=== PATIENT | male | born 1940 | race Caucasian/White ===

== ENCOUNTER → 2019-05-06 | Outpatient (CLI) | payer MEDICARE ==
[~2019-05-06] MED LIST: ASP81CT PO; CEPH-38 PO; LISI1TAB10 PO; OMEP-10 PO; OXYC-465 PO
--- NOTE | 2019-05-06 14:03 | Diagnostic Imaging Report ---
INDICATION: Right rib pain. TIME OF EXAMINATION: 12:23 PM. TECHNIQUE: Multiple views of the right ribs were obtained. FINDINGS: No displaced rib fracture is detected. No parenchymal contusion, effusion, or pneumothorax is detected. IMPRESSION: No abnormality is detected. Dictated by: Dictated on workstation # [id number]
== END ==
LOC: RAD FS 12:11
PROVIDERS: ATTEND Family Medicine
DX: R07.81 Pleurodynia (principal)
CPT/HCPCS: 71100

== ENCOUNTER 2020-09-17 10:52 | Outpatient (CLI) | payer MEDICARE ==
[~2020-09-17] VITALS: Ht 182.9 cm; Wt 105.5 kg
[2020-09-17] MEDS ORDERED: MAGNESIUM 1 GM/100 ML IVPB 400 ML IV ONE (11:00)
[2020-09-17 11:05] VITALS: BP 127/68
[2020-09-17] MEDS ORDERED: MAGNESIUM 1 GM/100 ML IVPB IV SCH (12:00)
== END 2020-09-17 15:24 ==
LOC: SDC 10:52
PROVIDERS: ATTEND Family Medicine
DX: E83.42 Hypomagnesemia (principal)
CPT/HCPCS: 96365; 96366

== ENCOUNTER 2022-08-30 12:36 | Outpatient (CLI) | payer MEDICARE ==
[2022-08-30 12:40] VITALS: BP 109/76
== END 2022-08-30 13:55 ==
LOC: SDC 12:36
PROVIDERS: ATTEND Family Medicine
DX: E83.42 Hypomagnesemia (principal)

== ENCOUNTER 2022-08-30 14:09 | Emergency (ER) | payer MEDICARE ==
[~2022-08-30] VITALS: Ht 182.8 cm; Wt 102.7 kg
[2022-08-30 14:09] VITALS: BP 117/81
--- NOTE | 2022-08-30 14:38 | ED General ---
General Chief Complaint: General Problems/Pain Stated Complaint: LOW MAGNESIUM Nursing Triage Note: Patient brought to ER today from infusion clinic d/t low magnesium. Infusion clinic staff stated patient's magnesium level on 08/17 was 0.5 and stated patient's PCP stated to bring patient to ER to have lab drawn. Source of Information: Patient Exam Limitations: No Limitations History of Present Illness Date Seen by Provider: Aug 30, 2022 Time Seen by Provider: 14:29 Initial Comments 81-year-old male presents to the ED for concerns of low magnesium. Patient had labs drawn on 08/17 which showed his magnesium at 0.5. Patient was at the infusion center today to get infusion of magnesium, but the had issues getting the order correct. The doctor told them to send him to the ER because the patient also seem to be " nodding off." Patient reports that he was just spacing out because he did not feel well. Patient is alert at this time. He seems annoyed that he is here, and sometimes refuses to talk to provider. Does appear to be fatigued. Patient's sister reports that he had similar symptoms 3 years ago when his magnesium was low. Reports at that time they were able to go to the infusion center and get magnesium replacement. Patient denies any fevers chest pain. Reports shortness of breath, but states he wears oxygen at all times. Denies any change in his shortness of breath. Allergies and Home Medications Allergies Coded Allergies: butorphanol (Unverified Allergy, Unknown, HALLUCINATIONS, 04/13/14) Uncoded Allergies: IVP DYE (Allergy, Unknown, RASH, 04/13/14) Patient Home Medication List Home Medication List Reviewed: Yes Cephalexin Monohydrate (Keflex) 500 Mg Capsule, 1 EACH PO BID Prescribed by: SEAN RHOADES on 04/14/14 1232 Hctz/Lisinopril (Lisinopril-Hctz 20-25MG Tab) 1 Tab Tablet, 1 TAB PO DAILY, (Reported) Entered as Reported by: WALDEMAR PARK on 04/13/14 1610 Omeprazole (Prilosec 20 Mg) 20 Mg Capsule.dr, 20 MG PO DAILY, (Reported) Entered as Reported by: WALDEMAR PARK on 04/13/14 1610 Oxycodone Hcl/Acetaminophen (Oxycodone-Acetaminophen 10-325) 1 Each Tablet, 1 EACH PO Q4H PRN for PAIN Prescribed by: SEAN RHOADES on 04/14/14 1232 Review of Systems Review of Systems Constitutional: see HPI Past Culwoal-Uhegtk-Fwkhbd Hx Patient Social History Tobacco Use?: No Smoking Status: Former Smoker Use of E-Cig and/or Vaping dev: No Substance use?: No Alcohol Use?: No Immunizations Up To Date Influenza Vaccine Up-to-Date: No; Not Current Past Medical History Surgery/Hospitalization HX: Gerd, A-fib, HTN, elevated cholesterol Physical Exam Vital Signs Vital Signs - First Documented 08/30/22 14:09 Temp 36.3 Pulse 93 Resp 18 B/P (MAP) 117/81 (93) Pulse Ox 95 O2 Delivery Room Air Capillary Refill : Height, Weight, BMI Height: 6'" Weight: 237lbs. oz. 107.779245il; 30.00 BMI Method: General Appearance: No Apparent Distress, WD/WN Neck: Non Tender, Supple Respiratory: Lungs Clear, Normal Breath Sounds, No Accessory Muscle Use, No Respiratory Distress Cardiovascular: Irregularly Irregular Extremity: Normal Inspection, Non Tender Neurologic/Psychiatric: Alert, Normal Mood/Affect Skin: Normal Color, Warm/Dry Progress/Results/Core Measures Suspected Sepsis SIRS Temperature: Pulse: 93 Respiratory Rate: 18 Laboratory Tests 08/30/22 14:13: White Blood Count 10.4 Blood Pressure 117 /81 Mean: 93 Laboratory Tests 08/30/22 14:13: Creatinine 1.60H, Platelet Count 282 Results/Orders Lab Results Laboratory Tests Test 08/30/22 14:13 Range/Units White Blood Count 10.4 4.3-11.0 10^3/uL Red Blood Count 5.37 4.30-5.52 10^6/uL Hemoglobin 13.1 L 13.3-17.7 g/dL Hematocrit 44 40-54 % Mean Corpuscular Volume 82 80-99 fL Mean Corpuscular Hemoglobin 24 L 25-34 pg Mean Corpuscular Hemoglobin Concent 30 L 32-36 g/dL Red Cell Distribution Width 16.7 H 10.0-14.5 % Platelet Count 282 130-400 10^3/uL Mean Platelet Volume 9.8 9.0-12.2 fL Immature Granulocyte % (Auto) 0 % Neutrophils (%) (Auto) 67 42-75 % Lymphocytes (%) (Auto) 22 12-44 % Monocytes (%) (Auto) 8 0-12 % Eosinophils (%) (Auto) 3 0-10 % Basophils (%) (Auto) 1 0-10 % Neutrophils # (Auto) 6.9 1.8-7.8 X 10^3 Lymphocytes # (Auto) 2.3 1.0-4.0 X 10^3 Monocytes # (Auto) 0.8 0.0-1.0 X 10^3 Eosinophils # (Auto) 0.3 0.0-0.3 10^3/uL Basophils # (Auto) 0.1 0.0-0.1 10^3/uL Immature Granulocyte # (Auto) 0.0 0.0-0.1 10^3/uL Sodium Level 139 135-145 MMOL/L Potassium Level 4.1 3.6-5.0 MMOL/L Chloride Level 100 98-107 MMOL/L Carbon Dioxide Level 27 21-32 MMOL/L Anion Gap 12 5-14 MMOL/L Blood Urea Nitrogen 20 H 7-18 MG/DL Creatinine 1.60 H 0.60-1.30 MG/DL Estimat Glomerular Filtration Rate 43 BUN/Creatinine Ratio 13 Glucose Level 103 70-105 MG/DL Calcium Level 9.4 8.5-10.1 MG/DL Magnesium Level 1.5 L 1.6-2.4 MG/DL My Orders Orders - BASSAM SHRESTHA APRN Basic Metabolic Panel (08/30/22 14:34) Cbc With Automated Diff (08/30/22 14:34) Magnesium (08/30/22 14:38) Ekg Tracing (08/30/22 14:38) Magnesium 1 Gm/100 Ml Ivpb (Magnesium Kramer (08/30/22 15:15) Medications Given in ED Current Medications Medications Dose Ordered Sig/Jaimie Route Start Time Stop Time Status Last Admin Dose Admin Magnesium Sulfate/ Dextrose 100 ml @ 200 mls/hr ONCE ONCE IV 08/30/22 15:15 08/30/22 15:44 DC 08/30/22 15:16 200 MLS/HR Vital Signs/I&O 08/30/22 14:09 Temp 36.3 Pulse 93 Resp 18 B/P (MAP) 117/81 (93) Pulse Ox 95 O2 Delivery Room Air Capillary Refill : Blood Pressure Mean: 93 Progress Note : Time: 14:43 Progress Note Patient evaluated, resting comfortably in bed, no acute distress. Based on exam and symptoms, will repeat blood work. CBC, BMP, and magnesium ordered. EKG ordered as well. ECG Initial ECG Impression Date: Aug 30, 2022 Initial ECG Impression Time: 15:05 Initial ECG Rate: 85 Initial ECG Rhythm: A Fib/Flutter Initial ECG Intervals: QRS (QRS 138) Initial ECG Comparisson: No Previous ECG Available Comment Left bundle branch block, atrial fibrillation. No previous EKG to compare. Departure Impression Primary Impression: Fatigue Additional Impressions: Hypomagnesemia LBBB (left bundle branch block) Chronic kidney disease Disposition: HOME, SELF-CARE Condition: Stable Departure-Patient Inst. Decision time for Depature: 16:02 Referrals: JEMAL COELHO MD FACP FAC CCDS GIA BRITO MD (PCP/Family) Primary Care Physician Patient Instructions: Low Magnesium Level (DC) Add. Discharge Instructions: Follow-up with cardiology regarding the change in your EKG. Continue taking your medications as prescribed including your magnesium. Follow-up with your primary care provider. Return for chest pain, worsening shortness of breath, severe fatigue, or any other new, concerning, or worsening symptoms. All discharge instructions reviewed with patient and/or family. Voiced understanding. BASSAM SHRESTHA APRN Aug 30, 2022 14:38
[2022-08-30 14:43] LABS: BASOPHILS # (AUTO) 0.1 10^3/uL (0.0-0.1); BASOPHILS % (AUTO) 1 % (0-10); EOSINOPHILS # (AUTO) 0.3 10^3/uL (0.0-0.3); EOSINOPHILS % (AUTO) 3 % (0-10); HEMATOCRIT 44 % (40-54); HEMOGLOBIN 13.1 g/dL (13.3-17.7); LYMPHOCYTES # (AUTO) 2.3 X 10^3 (1.0-4.0); LYMPHOCYTES % (AUTO) 22 % (12-44); MEAN CORPUSCULAR HEMOGLOBIN 24 pg (25-34); MEAN CORPUSCULAR HGB CONC 30 g/dL (32-36); MEAN CORPUSCULAR VOLUME 82 fL (80-99); MEAN PLATELET VOLUME 9.8 fL (9.0-12.2); MONOCYTES # (AUTO) 0.8 X 10^3 (0.0-1.0); MONOCYTES % (AUTO) 8 % (0-12); NEUTROPHILS # (AUTO) 6.9 X 10^3 (1.8-7.8); NEUTROPHILS % (AUTO) 67 % (42-75); PLATELET COUNT 282 10^3/uL (130-400); WHITE BLOOD COUNT 10.4 10^3/uL (4.3-11.0)
[2022-08-30 14:57] LABS: POTASSIUM 4.1 MMOL/L (3.6-5.0)
[2022-08-30 14:58] LABS: CALCIUM 9.4 MG/DL (8.5-10.1)
[2022-08-30 15:02] LABS: CREATININE SERUM 1.6 MG/DL (0.60-1.30)
[2022-08-30] MEDS ORDERED: MAGNESIUM 1 GM/100 ML IVPB 100 ML IV ONE (15:15)
== END 2022-08-30 16:16 | disposition home or self-care (01) ==
LOC: EDUNIT# 14:09 → ER 14:11
DX: E83.42 Hypomagnesemia (principal); I44.7 Left bundle-branch block, unspecified; I12.9 Hypertensive chronic kidney disease with stage 1 through stage 4 chronic kidney disease, or unspecified chronic kidney disease; N18.9 Chronic kidney disease, unspecified; Z87.891 Personal history of nicotine dependence; Z28.310 Unvaccinated for COVID-19
CPT/HCPCS: 36415; 80048; 83735; 85025; 93005

== ENCOUNTER 2023-03-19 14:13 | Emergency (ER) | payer MEDICARE ==
[~2023-03-19] VITALS: Ht 177 cm; Wt 66.0 kg
[2023-03-19 14:19] VITALS: BP 131/76
--- NOTE | 2023-03-19 14:29 | ED General ---
General Chief Complaint: General Problems/Pain Stated Complaint: LOW BP Source of Information: Patient, EMS History of Present Illness Date Seen by Provider: Mar 19, 2023 Time Seen by Provider: 14:13 Initial Comments 82-year-old male presenting by EMS from [facility] where he was being seen for her routine office visit by primary care, Dr. Loya. He states that he has been sick for the last week or so and cough as well as lost his voice. He felt fatigued and weak overall. He felt like he was more fatigued and weak now. Previously he had been having low blood pressures down to [address] Loya had adjusted his medications because a thought he was getting too much of his blood pressure medicine. He denies any pain. He has had some chronic diarrhea. Denies nausea, vomiting, headache, chest pain, abdominal pain, blood in his urine, blood in his stools. He has a burning sensation as though he has been cut when he goes to pee. He previously has had a scope done by Dr. Murray and states at that time he had bleeding that they could not control and he had to be admitted to the ICU. He does have a history of COPD, hypertension, atrial fibrillation. He is on anticoagulation with Eliquis. Timing/Duration: 1 Week Severity: Moderate Associated Systoms: No Chest Pain; Cough; No Diaphoresis, No Fever/Chills, No Headaches; Loss of Appetite, Malaise; No Nausea/Vomiting, No Rash, No Seizure; Shortness of Air; No Syncope; Weakness Allergies and Home Medications Allergies Coded Allergies: butorphanol (Unverified Allergy, Unknown, HALLUCINATIONS, 04/13/14) Uncoded Allergies: IVP DYE (Allergy, Unknown, RASH, 04/13/14) Patient Home Medication List Home Medication List Reviewed: Yes Cephalexin Monohydrate (Keflex) 500 Mg Capsule, 1 EACH PO BID Prescribed by: SEAN RHOADES on 04/14/14 1232 Hctz/Lisinopril (Lisinopril-Hctz 20-25MG Tab) 1 Tab Tablet, 1 TAB PO DAILY, (Reported) Entered as Reported by: WALDEMAR PARK on 04/13/14 1610 Levofloxacin (Levofloxacin) 500 Mg Tablet, 500 MG PO DAILY Prescribed by: JHONATAN VERMA on 03/19/23 161 Omeprazole (Prilosec 20 Mg) 20 Mg Capsule.dr, 20 MG PO DAILY, (Reported) Entered as Reported by: WALDEMAR PARK on 04/13/14 1610 Oxycodone Hcl/Acetaminophen (Oxycodone-Acetaminophen 10-325) 1 Each Tablet, 1 EACH PO Q4H PRN for PAIN Prescribed by: SEAN RHOADES on 04/14/14 1232 Review of Systems Review of Systems Constitutional: No chills, No diaphoresis, No fever; malaise, weakness EENTM: nose congestion Respiratory: cough; No phlegm; short of breath; No stridor, No wheezing Cardiovascular: No chest pain; palpitations Gastrointestinal: No abdominal pain; diarrhea; No nausea, No vomiting Genitourinary: dysuria (pain as though he has a cut) Musculoskeletal: no symptoms reported Skin: other (dry flaky skin all over) Psychiatric/Neurological: Denies Headache; Weakness (generalized) Hematologic/Lymphatic: Easy Bleeding, Easy Bruising (taking eliquis) Past Ayvhlav-Sprwux-Wctxlw Hx Patient Social History Tobacco Use?: No Use of E-Cig and/or Vaping dev: No Substance use?: No Alcohol Use?: No Pt feels they are or have been: No Past Medical History Surgery/Hospitalization HX: Gerd, A-fib, HTN, elevated cholesterol, COPD Physical Exam Vital Signs Vital Signs - First Documented 03/19/23 03/19/23 14:19 15:09 Temp 36.1 Pulse 73 Resp 19 B/P (MAP) 131/76 (94) Pulse Ox 95 O2 Delivery Room Air FiO2 21 Capillary Refill : Less Than 3 Seconds Height, Weight, BMI Height: 6'" Weight: 237lbs. oz. 107.170253pa; 30.00 BMI Method: General Appearance: No Apparent Distress, Chronically ill HEENT: PERRL/EOMI, Pharynx Normal Respiratory: Chest Non Tender, No Accessory Muscle Use, No Respiratory Distress, Decreased Breath Sounds Cardiovascular: Normal Peripheral Pulses, Irregularly Irregular Gastrointestinal: Normal Bowel Sounds, No Pulsatile Mass, Non Tender, Soft Rectal: Deferred Extremity: Normal Capillary Refill, Pedal Edema Neurologic/Psychiatric: Alert, Oriented x3, outplacement consultant II-XII Norm as Tested Skin: Warm/Dry, Other (dry flaky skin all over) Focused Exam Lactate Level 03/19/23 14:15: Lactic Acid Level 1.63 Lactic Acid Level Laboratory Tests Test 03/19/23 14:15 Lactic Acid Level 1.63 MMOL/L (0.50-2.00) Progress/Results/Core Measures Suspected Sepsis SIRS Temperature: Pulse: Respiratory Rate: Laboratory Tests 03/19/23 14:15: White Blood Count 9.8 Blood Pressure / Mean: 03/19/23 14:15: Lactic Acid Level 1.63 Laboratory Tests 03/19/23 14:15: Creatinine 2.17H, INR Comment 1.2, Platelet Count 226, Total Bilirubin 0.8 Results/Orders Lab Results Laboratory Tests Test 03/19/23 14:15 03/19/23 14:45 Range/Units White Blood Count 9.8 4.3-11.0 10^3/uL Red Blood Count 5.10 4.30-5.52 10^6/uL Hemoglobin 12.9 L 13.3-17.7 g/dL Hematocrit 43 40-54 % Mean Corpuscular Volume 84 80-99 fL Mean Corpuscular Hemoglobin 25 25-34 pg Mean Corpuscular Hemoglobin Concent 30 L 32-36 g/dL Red Cell Distribution Width 16.5 H 10.0-14.5 % Platelet Count 226 130-400 10^3/uL Mean Platelet Volume 10.2 9.0-12.2 fL Immature Granulocyte % (Auto) 0 % Neutrophils (%) (Auto) 65 42-75 % Lymphocytes (%) (Auto) 23 12-44 % Monocytes (%) (Auto) 10 0-12 % Eosinophils (%) (Auto) 1 0-10 % Basophils (%) (Auto) 1 0-10 % Neutrophils # (Auto) 6.4 1.8-7.8 10^3/uL Lymphocytes # (Auto) 2.2 1.0-4.0 10^3/uL Monocytes # (Auto) 1.0 0.0-1.0 10^3/uL Eosinophils # (Auto) 0.1 0.0-0.3 10^3/uL Basophils # (Auto) 0.1 0.0-0.1 10^3/uL Immature Granulocyte # (Auto) 0.0 0.0-0.1 10^3/uL Percent Immature Platelet Fraction 3.0 0.0-7.6 % Prothrombin Time 15.3 H 12.2-14.7 SEC INR Comment 1.2 0.8-1.4 Activated Partial Thromboplast Time 33 24-35 SEC Sodium Level 140 135-145 MMOL/L Potassium Level 4.3 3.6-5.0 MMOL/L Chloride Level 102 98-107 MMOL/L Carbon Dioxide Level 27 21-32 MMOL/L Anion Gap 11 5-14 MMOL/L Blood Urea Nitrogen 27 H 7-18 MG/DL Creatinine 2.17 H 0.60-1.30 MG/DL Estimat Glomerular Filtration Rate 30 BUN/Creatinine Ratio 12 Glucose Level 111 H 70-105 MG/DL Lactic Acid Level 1.63 0.50-2.00 MMOL/L Calcium Level 8.6 8.5-10.1 MG/DL Corrected Calcium 9.2 8.5-10.1 MG/DL Magnesium Level 1.6 1.6-2.4 MG/DL Total Bilirubin 0.8 0.1-1.0 MG/DL Aspartate Amino Transf (AST/SGOT) 26 5-34 U/L Alanine Aminotransferase (ALT/SGPT) 30 0-55 U/L Alkaline Phosphatase 123 40-136 U/L Troponin I < 0.30 <0.30 NG/ML Pro-B-Type Natriuretic Peptide 1360.0 H <450.0 PG/ML Total Protein 7.9 6.4-8.2 GM/DL Albumin 3.2 3.2-4.5 GM/DL Lipase 38 8-78 U/L Serum Alcohol < 10 <10 MG/DL Influenza Type A (RT-PCR) Not Detected Not Detecte Influenza Type B (RT-PCR) Not Detected Not Detecte SARS-CoV-2 RNA (RT-PCR) Detected H Not Detecte Urine Color YELLOW Urine Clarity SL CLOUDY Urine pH 6.0 5-9 Urine Specific [place] 1.015 L 1.016-1.022 Urine Protein 2+ H NEGATIVE Urine Glucose (UA) NEGATIVE NEGATIVE Urine Ketones NEGATIVE NEGATIVE Urine Nitrite NEGATIVE NEGATIVE Urine Bilirubin 1+ H NEGATIVE Urine Urobilinogen 1.0 < = 1.0 MG/DL Urine Leukocyte Esterase 2+ H NEGATIVE Urine RBC (Auto) 3+ H NEGATIVE Urine RBC >100 H /HPF Urine WBC 50-100 H /HPF Urine Squamous Epithelial Cells 5-10 /HPF Urine Crystals NONE /LPF Urine Bacteria MODERATE H /HPF Urine Casts PRESENT /LPF Urine Hyaline Casts 10-25 H /LPF Urine Mucus MODERATE H /LPF Urine Culture Indicated YES Urine Opiates Screen NEGATIVE NEGATIVE Urine Oxycodone Screen NEGATIVE NEGATIVE Urine Methadone Screen NEGATIVE NEGATIVE Urine Barbiturates Screen NEGATIVE NEGATIVE Ur Tricyclic Antidepressants Screen NEGATIVE NEGATIVE Urine Phencyclidine Screen NEGATIVE NEGATIVE Urine Amphetamines Screen NEGATIVE NEGATIVE Urine Methamphetamines Screen NEGATIVE NEGATIVE Urine Benzodiazepines Screen NEGATIVE NEGATIVE Urine Cocaine Screen NEGATIVE NEGATIVE Urine Cannabinoids Screen NEGATIVE NEGATIVE My Orders Orders - JHONATAN VERMA MD Cbc And Automated Diff (03/19/23 14:20) Magnesium (03/19/23 14:20) Chest 1 View Ap/Pa Only (03/19/23 14:20) Ekg Tracing (03/19/23 14:20) Comprehensive Metabolic Panel (03/19/23 14:20) Protime With Inr (03/19/23 14:20) Partial Thromboplastin Time (03/19/23 14:20) O2 (03/19/23 14:20) Monitor-Rhythm Ecg Trace Only (03/19/23 14:20) Ed Iv/Invasive Line Start (03/19/23 14:20) Lipase (03/19/23 14:20) Troponin I Fs (03/19/23 14:20) Probnp Fs (03/19/23 14:20) Blood Culture (03/19/23 14:20) Ua Culture If Indicated (03/19/23 14:20) Drug Screen Stat (Urine) (03/19/23 14:20) Alcohol (03/19/23 14:20) Lactic Acid Analyzer (03/19/23 14:20) Covid 19 Inhouse Test (03/19/23 14:20) Influenza A And B By Pcr (03/19/23 14:20) Straight Cath For Spec.-Adult (03/19/23 14:58) Urine Culture (03/19/23 14:45) Ceftriaxone Iv/Im (Ceftriaxone Iv/Im) (03/19/23 15:14) Vital Signs/I&O 03/19/23 03/19/23 14:19 15:09 Temp 36.1 Pulse 73 Resp 19 B/P (MAP) 131/76 (94) Pulse Ox 95 95 O2 Delivery Room Air FiO2 21 Capillary Refill : Less Than 3 Seconds Progress Note #1: Progress Note Differential diagnosis includes dehydration, electrolyte imbalance, renal failure, hepatic failure, COVID, influenza, pneumonia, sepsis, UTI, anemia. Peripheral IV established by EMS and IV fluids infusing in route. Will allow the IV fluids from EMS to finish infusing. On arrival to the ED his blood pressure was 136/68. Obtain nasal swab for COVID and influenza. 1 view chest x-ray to look for pathology in his chest. Electrocardiogram to look for ischemia. Placed on cardiac conveyor monitor to watch his heart rate and rhythm. On my initial interpretation of his telemetry he has atrial fibrillatio n with a heart rate in the 70s. Obtain blood for complete blood count, comprehensive metabolic profile, magnesium, lipase, troponin, proBNP, pro time, PTT, blood cultures, lactic acid. Urinalysis with urine drug screen and alcohol level to look for other reasons for his complaint of feeling fatigued and weak. Progress Note #2: Time: 14:54 Progress Note Complete blood count shows normal white blood cell count at 9.8. His hemoglobin is 12.9 with platelets of 226. His electrocardiogram shows atrial fibrillation with left bundle branch block and appears similar to tracing from August 30, 2022. His 1 view chest x-ray read by radiologist as no acute process. Progress Note #3: Time: 15:00 Progress Note Lab called to report that the patient does have COVID. Influenza was negative. Comprehensive metabolic profile did show some dehydration with elevated BUN to 27 and creatinine to 2.17. Magnesium was low normal at 1.6. Troponin negative at less than 0.3. Mild elevation of the proBNP to 1360. Normal lipase at 38. His urinalysis did show signs of infection with specific gravity of 1.015 and 2+ leukocyte esterase with 3+ blood. 50-100 white blood cells and moderate bacteria. Administer ceftriaxone 1 g IV here to help treat for UTI. As he was not exhibiting signs of pneumonia or any acute process on his chest x-ray as well as he was maintaining his oxygen saturation at 94 to 97% on room air. He states that usually he uses oxygen at home and has a portable oxygen machine in the car. He does wish to try and go home and was feeling a little better after fluids and treatment here in the ED. I did discuss option of taking the Paxlovid is an antiviral medicine for COVID to try and help prevent him from getting worsening symptoms however patient opted to not take it due to concern for side effects and he had already had COVID symptoms for over a week now. Stressed importance of trying to drink more fluids and being better hydrated. Also counseled to check back with the clinic or return if having worsening symptoms or more concerns. Advised to wear mask around others for at least another 3 days to complete a 10-day period from when he had COVID symptom onset. ECG Initial ECG Impression Date: Mar 19, 2023 Initial ECG Impression Time: 14:41 Initial ECG Rate: 77 Initial ECG Rhythm: A Fib/Flutter Initial ECG Comparisson: Unchanged (08/30/2022) Comment Based on the personal interpretation and review his electrocardiogram shows atrial fibrillation with a heart rate of 77 bpm. He has a left bundle branch block intraventricular conduction delay. He has no acute ST elevation. QT interval 443 ms with a QTc interval 475 ms. Overall this appears similar to tracing from August 30, 2022. Diagnostic Imaging Diagonstic Imaging: Xray Plain Films/CT/US/NM/MRI: chest Comments [facility] [place] [place] NAME: [facility] REC#: [id number] PT STATUS: REG ER : 1940 PHYSICIAN: JHONATAN VERMA MD ADMIT DATE: 03/19/23/ER FS Draft Date of Exam:03/19/23 CHEST 1 VIEW AP/PA ONLY INDICATION: Fatigue, short of breath, cough. COMPARISON: None. FINDINGS: Single frontal view of the chest demonstrates normal heart size and pulmonary vascularity. The lungs are well aerated and clear. No large pleural effusion or pneumothorax is seen. The visualized osseous structures show no acute abnormalities. IMPRESSION: No acute cardiopulmonary process. Dictated on workstation # [id number] Dict: 03/19/23 1439 Trans: 03/19/23 1440 [id number] Interpreted by: HIPOLITO LAY MD Electronically signed by: Reviewed: Reviewed by Me Departure Impression Primary Impression: COVID-19 virus infection Additional Impressions: Fatigue Qualified Codes: R53.83 - Other fatigue Acute cystitis with hematuria Dehydration Disposition: 01 HOME, SELF-CARE Condition: Stable Departure-Patient Inst. Decision time for Depature: 16:10 Referrals: GIA LOYA MD (PCP/Family) Primary Care Physician Patient Instructions: Acute Cystitis (DC), COVID-19 ED, Dehydration, Adult ED, Fatigue ED Add. Discharge Instructions: Try to keep sipping on fluids and stay well hydrated. Wear a mask when around others for at least the next 3 days due to being positive to Covid. Take the full course of antibiotics to treat for urine infection. Check back with clinic if not improving. Be re-evaluated if having worsening symptoms or more problems. All discharge instructions reviewed with patient and/or family. Voiced understanding. Scripts Levofloxacin (Levofloxacin) 500 Mg Tablet 500 MG PO DAILY for UTI for 5 Days, #5 TAB 0 Refills Prov: JHONATAN VERMA MD 03/19/23 JHONATAN VERMA MD Mar 19, 2023 14:28
--- NOTE | 2023-03-19 14:40 | Diagnostic Imaging Report ---
INDICATION: Fatigue, short of breath, cough. COMPARISON: None. FINDINGS: Single frontal view of the chest demonstrates normal heart size and pulmonary vascularity. The lungs are well aerated and clear. No large pleural effusion or pneumothorax is seen. The visualized osseous structures show no acute abnormalities. IMPRESSION: No acute cardiopulmonary process. Dictated by: Dictated on workstation # [id number]
[2023-03-19 14:43] LABS: BASOPHILS # (AUTO) 0.1 10^3/uL (0.0-0.1); BASOPHILS % (AUTO) 1 % (0-10); EOSINOPHILS # (AUTO) 0.1 10^3/uL (0.0-0.3); EOSINOPHILS % (AUTO) 1 % (0-10); HEMATOCRIT 43 % (40-54); HEMOGLOBIN 12.9 g/dL (13.3-17.7); LYMPHOCYTES # (AUTO) 2.2 10^3/uL (1.0-4.0); LYMPHOCYTES % (AUTO) 23 % (12-44); MEAN CORPUSCULAR HEMOGLOBIN 25 pg (25-34); MEAN CORPUSCULAR HGB CONC 30 g/dL (32-36); MEAN CORPUSCULAR VOLUME 84 fL (80-99); MEAN PLATELET VOLUME 10.2 fL (9.0-12.2); MONOCYTES % (AUTO) 10 % (0-12); NEUTROPHILS # (AUTO) 6.4 10^3/uL (1.8-7.8); NEUTROPHILS % (AUTO) 65 % (42-75); PLATELET COUNT 226 10^3/uL (130-400); WHITE BLOOD COUNT 9.8 10^3/uL (4.3-11.0)
[2023-03-19 14:58] LABS: BILIRUBIN,URINE 1+ (NEGATIVE); CLARITY,URINE SL CLOUDY; COLOR,URINE YELLOW; GLUCOSE, URINE (UA) NEGATIVE (NEGATIVE); KETONES,URINE NEGATIVE (NEGATIVE); LEUKOCYTE ESTERASE ,URINE 2+ (NEGATIVE); NITRITE,URINE NEGATIVE (NEGATIVE); PROTEIN,URINE 2+ (NEGATIVE)
[2023-03-19 15:05] LABS: CHLORIDE 102 MMOL/L (98-107); POTASSIUM 4.3 MMOL/L (3.6-5.0); SODIUM 140 MMOL/L (135-145)
[2023-03-19 15:06] LABS: BACTERIA,URINE MODERATE /HPF; RBC,URINE >100 /HPF; WBC,URINE 50-100 /HPF
[2023-03-19 15:08] LABS: INR 1.2 (0.8-1.4); PROTHROMBIN TIME PATIENT 15.3 SEC (12.2-14.7)
[2023-03-19 15:10] LABS: ALANINE AMINOTRANSFERASE 30 U/L (0-55); ALBUMIN 3.2 GM/DL (3.2-4.5); ALKALINE PHOSPHATASE 123 U/L (40-136); BILIRUBIN,TOTAL 0.8 MG/DL (0.1-1.0); BUN/CREATININE RATIO 12; CALCIUM 8.6 MG/DL (8.5-10.1); CARBON DIOXIDE 27 MMOL/L (21-32); CREATININE SERUM 2.17 MG/DL (0.60-1.30); GFR ESTIMATED 30; GLUCOSE 111 MG/DL (70-105); MAGNESIUM 1.6 MG/DL (1.6-2.4); TOTAL PROTEIN 7.9 GM/DL (6.4-8.2)
[2023-03-19 15:10] LABS: AMPHETAMINE SCREEN, URINE NEGATIVE (NEGATIVE); BARBITURATE SCREEN URINE NEGATIVE (NEGATIVE); CANNABINOID SCREEN, URINE NEGATIVE (NEGATIVE); COCAINE SCREEN URINE NEGATIVE (NEGATIVE); METHADONE STAT NEGATIVE (NEGATIVE); OPIATE SCREEN URINE NEGATIVE (NEGATIVE); OXYCODONE STAT NEGATIVE (NEGATIVE); TRICYCLIC ANTIDEPRESSANTS SCRE NEGATIVE (NEGATIVE)
[2023-03-19 15:11] LABS: LIPASE 38 U/L (8-78)
[2023-03-19] MEDS ORDERED: cefTRIAXone IV/IM 1,000 MG in NS (IVPB) 50 ML 50 ML IV STA (15:14)
[2023-03-19] MEDS ORDERED: LEVO-55 PO (16:13)
== END 2023-03-19 16:25 | disposition home or self-care (01) ==
LOC: EDUNIT# 14:13 → ER FS 14:14
DX: U07.1 COVID-19 (principal); N30.01 Acute cystitis with hematuria; E86.0 Dehydration; R05.9 Cough, unspecified
CPT/HCPCS: 36415; 51701; 71045; 80053; 80306; 81000; 83605; 83690; 83735; 83880; 84484; 85025; 85610; 85730; 87040; 87077; 87088; 87186; 87636; 93005; 93041; 96374; 99284; G0480; 80320